=== PATIENT | male | born 1985 | race Caucasian/White ===

== ENCOUNTER → 2017-04-28 | Outpatient (CLI) | payer OTHER ==
[~2017-04-28] MED LIST: ALLDSR60 PO
--- NOTE | 2017-04-28 15:24 | DIAGNOSTIC IMAGING REPORT ---
L ANKLE MIN 3 VIEWS ROUTINE HISTORY: 32 years-old Male ANKLE PAIN acute left-sided ankle pain without reported trauma. COMPARISON: None available. TECHNIQUE: 3 views of the left ankle. FINDINGS: There is a thinly marginated peripherally sclerotic 2.0 x 1.6 cm lucent lesion of the mid calcaneal body seen best on the lateral projection. No associated fracture identified. There is no acute fracture, dislocation or significant degenerative changes. No osteochondral defect. Mild circumferential soft tissue swelling about the ankle. IMPRESSION: 1. Mild soft tissue swelling without acute fracture or dislocation. 2. Thin zone of transition peripherally sclerotic lucent lesion of the mid calcaneal body, 2.0 cm appears nonaggressive. Differential considerations would primarily include unicameral bone cyst or osseous lipoma with pseudolesion thought to be less likely. The above report was generated using voice recognition software. It may contain grammatical, syntax or spelling errors. Electronically signed by: David Duarte M.D. 04/28/2017 3:22 PM Dictated Date/Time: 04/28/2017 3:20 PM
== END | disposition home or self-care (01) ==
LOC: C.RADPV 14:58
PROVIDERS: ATTEND Family Medicine
DX: M25.579 Pain in unspecified ankle and joints of unspecified foot (principal)

== ENCOUNTER 2017-07-07 13:41 | Emergency (ER) | payer OTHER ==
[~2017-07-07] VITALS: Ht 165.1 cm; Wt 83.4 kg
[2017-07-07 13:45] VITALS: TEMP 36.9; Ht 165.1 cm; Wt 83.4 kg
[2017-07-07] MEDS ORDERED: XYLOCAINE 1%/SOD BICARB 20 ML VIAL INFIL ONE (14:15)
--- NOTE | 2017-07-07 15:01 | EMERGENCY ROOM VISIT NOTE ---
History First contact with patient: 13:56 Chief Complaint: LACERATION/CUT (SUT/DERMABOND) Stated Complaint: LACERATION ON BACK OF HEAD Nursing Triage Summary: Patient states "I had a piece of equipment fall on top of my head and cut me about 1 hr ago." History of Present Illness The patient is a 32 year old male who presents to the Emergency Room with complaints of laceration to the back of his head. The patient states that a piece of farm equipment became on attached to the remainder of the piece of equipment and swung and hit him in the back of the head. The patient denies any loss of consciousness, dizziness, visual changes or headache. The patient' s tetanus is up-to-date. The patient denies any neck pain. Review of Systems 10 system review was performed and was negative unless stated otherwise history of present illness. Past Medical/Surgical History No significant past medical history Social History Smoking Status: Never Smoker Smokeless Tobacco Use: No Alcohol Use: none Drug Use: none Marital Status: single Housing Status: lives alone Occupation Status: employed Current/Historical Medications Scheduled Fexofenadine/Pseudoephedrine (Rosemary-D 12HR 60/120MG), 1 TAB PO Q12 Physical Exam Vital Signs Date Time Temp Pulse Resp B/P (MAP) Pulse Ox O2 Delivery O2 Flow Rate FiO2 07/07/17 13:45 36.9 71 18 122/79 99 Room Air Physical Exam GENERAL: 32-year-old white male appears in no acute distress. HEAD: There is a 1.5 cm laceration on the posterior aspect of the parietal region superiorly located. There is no active bleeding. Remainder of the head is unremarkable. EYES: PERRLA. EOMs intact. EARS: Canals clear. TMs without hemotympanum NEURO:Cranial nerves two through 12 intact. Cerebellar function intact with [id number]. Fine motor intact with alternating finger motions. CERVICAL SPINE: Patient nontender to palpation over the spinous processes in the paravertebral regions bilaterally. Full range of motion. Medical Decision & Procedures ED Course The patient was evaluated. Wound Repair: Complexity: Basic. Verbal consent was obtained after the risks and benefits were explained, including but not limited to bleeding, scarring, infection, pain, and bone/joint /nerve damage. The skin was prepped with betadine and a sterile field set. The wound was anesthetized with 1.4 ml of 1% buffered lidocaine. With direct pressure the bleeding subsided. Copious irrigation was performed using sterile saline. The wound was explored for foreign bodies and none found. Debridement was not performed. The wound edges were approximated using 3 jabari Hemostasis and excellent approximation was achieved. Antibacterial ointment was applied. Detailed wound care instructions and signs and symptoms of infection reviewed with the patient. No complications and the patient tolerated the procedure well. Medical Decision Differential diagnosis include cranial bleed, head contusion, laceration, concussion [place] Drug Monitoring Program Search Results: patient reviewed within database Medication Reconcilliation Current Medication List: was personally reviewed by me Blood Pressure Screening Patient's blood pressure: Normal blood pressure Impression Primary Impression: Laceration of scalp Additional Impression: Head contusion Departure Information Dispostion Home / Self-Care Condition GOOD Referrals Gia Caballero M.D. (PCP) Forms HOME CARE DOCUMENTATION FORM, IMPORTANT VISIT INFORMATION Patient Instructions ED Head Injury Closed, ED Wound Care, [facility] Additional Instructions Antibiotic ointment to the wound for the next 2-3 days. You may get the wound wet but do not submerge her head in water. Any signs of infection follow-up with your family doctor. Staple removal in 8 days. Problem Qualifiers Primary Impression: Laceration of scalp Encounter type: initial encounter Qualified Codes: S01.01XA - Laceration without foreign body of scalp, initial encounter Additional Impression: Head contusion Encounter type: initial encounter Contusion of head detail: scalp Qualified Codes: S00.03XA - Contusion of scalp, initial encounter
[2017-07-07 15:18] VITALS: BP 119/87; PULSE 70; O2SAT 97
== END 2017-07-07 15:24 | disposition home or self-care (01) ==
LOC: C.EDB 13:43 → C.EDD 15:24
DX: S01.01XA Laceration without foreign body of scalp, initial encounter (principal); S00.03XA Contusion of scalp, initial encounter; W20.8XXA Other cause of strike by thrown, projected or falling object, initial encounter; Y92.89 Other specified places as the place of occurrence of the external cause

== ENCOUNTER 2017-07-15 13:11 | Emergency (ER) | payer OTHER ==
[~2017-07-15] VITALS: Ht 167.6 cm; Wt 84.8 kg
[2017-07-15 13:15] VITALS: BP 137/81; PULSE 96; TEMP 36.8; O2SAT 99; Ht 167.6 cm; Wt 84.8 kg
--- NOTE | 2017-07-15 13:30 | EMERGENCY ROOM VISIT NOTE ---
ED Visit Note First contact with patient: 13:20 CHIEF COMPLAINT: Removal of jabari HISTORY OF PRESENT ILLNESS: This 32-year-old male patient presents to the emergency department for removal of jabari from their head. The jabari were placed 8 days ago. There have been no signs of infection. The patient denies any pain. REVIEW OF SYSTEMS: A review of systems was performed with positives and pertinent negatives listed in the history of present illness. All other systems were reviewed and are negative. ALLERGIES: No known drug allergies MEDICATIONS: Unchanged from previous visit. PMH: Unchanged from previous visit. SOCIAL HISTORY: Unchanged PHYSICAL EXAM: VITALS: Vitals are noted on the nurse's note and reviewed by myself. Vital signs stable. GENERAL: This is a 32-year-old male, in no acute distress, nondiaphoretic, well- developed well-nourished. SKIN: There is a well-healing stapled wound on the scalp with no signs of infection. EMERGENCY DEPARTMENT COURSE: The patient was evaluated as above. 3 Jabari were removed from the scalp with no dehiscence. There is no evidence of infection. Scar reduction measures were discussed the the patient. They verbalized understanding and were discharged home in good condition. Medication reconciliation: I attest that I have personally reviewed the patient 's current medication list. Blood pressure screening: Patient was found to have normal blood pressure on screening and does not require follow-up. DIAGNOSIS: Encounter for staple removal DISCHARGE INSTRUCTIONS & TREATMENT: Wash the remaining crusts off the wound. Keep the wound covered with SPF for the next 6 months to reduce scarring. Once the wound has fully healed, you may apply Vitamin E oil, cocoa butter, or any over the counter scar reducing formulations daily. Current/Historical Medications No Active Prescriptions or Reported Meds Allergies Coded Allergies: No Known Allergies (Verified , 07/15/17) Vital Signs Date Time Temp Pulse Resp B/P (MAP) Pulse Ox O2 Delivery O2 Flow Rate FiO2 07/15/17 13:15 36.8 96 18 137/81 99 Room Air Departure Information Impression Primary Impression: Encounter for removal of jabari Dispostion Home / Self-Care Condition GOOD Prescriptions No Active Prescriptions or Reported Meds Referrals Gia Caballero M.D. (PCP) Patient Instructions [facility] Additional Instructions Wash the remaining crusts off the wound. Keep the wound covered with SPF for the next 6 months to reduce scarring. Once the wound has fully healed, you may apply Vitamin E oil, cocoa butter, or any over the counter scar reducing formulations daily.
== END 2017-07-15 13:50 | disposition home or self-care (01) ==
LOC: C.EDB 13:11 → C.EDD 13:50
DX: Z48.02 Encounter for removal of sutures (principal); S01.00XD Unspecified open wound of scalp, subsequent encounter; X58.XXXD Exposure to other specified factors, subsequent encounter